=== PATIENT | male | born 1970 | race Caucasian/White ===

== ENCOUNTER → 2017-04-07 13:33 | Outpatient (CLI) | payer MEDICAID ==
[2015-03-29 12:45] VITALS: BMI 24.4
[~2017-04-07 13:33] MED LIST: BRILINTA90 MG PO; BUPRENORPHIN-N1 EACH SL; KLONOPIN1 MG PO; NEURONTIN600 MG PO; PERCOCET 10/3251 TA1 PO
[2017-04-07 14:42] LABS: BASOPHILS 0.2 % (0-2); EOSINOPHILS 1.7 % (0-7); HEMATOCRIT 49.7 % (42.0-54.0); HEMOGLOBIN 17.3 g/dL (13.5-17.5); IMMATURE GRANULOCYTES 0.3 % (0-5); MCH 32.6 pg (26.0-34.0); MCHC 34.8 g/dL (31.0-37.0); MCV 93.8 fL (80.0-100.0); MEAN PLATELET VOLUME 9.4 fL (7.4-10.4); MONOCYTES 7.7 % (2-11); NEUTROPHILS 58.1 % (40-80); PLATELET COUNT 164 10x3/uL (130-400); RDW 13.1 % (11.5-14.5); WBC 9.2 10x3/uL (4.8-10.8)
[2017-04-07 14:58] LABS: ALBUMIN 3.9 g/dL (3.4-5.0); ALKALINE PHOSPHATASE 66 U/L (46-116); ALT (SGPT) 17 U/L (10-68); BILIRUBIN - TOTAL 0.27 mg/dL (0.2-1.3); CALC OSMOLALITY 282 mosm/kg (275-300); CARBON DIOXIDE 34.3 mmol/L (21.0-32.0); CHLORIDE - SERUM 102 mmol/L (98-107); GLUCOSE 72 mg/dL (74-106); POTASSIUM - SERUM 3.5 mmol/L (3.5-5.1); PROTEIN - SERUM 7.3 g/dL (6.4-8.2); SODIUM 142 mmol/L (136-145); T4 THYROXINE 8.1 ug/dL (4.7-13.3); UREA NITROGEN 14 mg/dL (7-18); eGFR NON AFRICAN AMERICAN 85 mL/min (90-120)
[2017-04-07 15:02] LABS: HEMOGLOBIN A1C 5.6 % (4.8-6.0)
[2017-04-08 07:22] LABS: RAPID PLASMA REAGIN Non Reactive (Non Reactive)
[2017-04-08 09:14] LABS: FOLATE (FOLIC ACID) - SERUM 2.5 ng/mL (>3.0)
== END | disposition home or self-care (01) ==
LOC: D.LAB 04-02 12:45 → D.MRI 04-02 13:00
PROVIDERS: Psychiatry & Neurology Neurology
DX: F07.81 Postconcussional syndrome (principal); M54.2 Cervicalgia; G60.9 Hereditary and idiopathic neuropathy, unspecified

== ENCOUNTER 2017-06-01 23:52 | Inpatient (IN) | payer MEDICAID ==
[2017-06-02 00:24] LABS: BASOPHILS 0.1 % (0-2); EOSINOPHILS 0.1 % (0-7); HEMATOCRIT 47.5 % (42.0-54.0); HEMOGLOBIN 16.5 g/dL (13.5-17.5); IMMATURE GRANULOCYTES 0.3 % (0-5); LYMPHOCYTES 13.4 % (15-50); MCH 32.5 pg (26.0-34.0); MCHC 34.7 g/dL (31.0-37.0); MCV 93.5 fL (80.0-100.0); MEAN PLATELET VOLUME 9.8 fL (7.4-10.4); MONOCYTES 12.2 % (2-11); NEUTROPHILS 73.9 % (40-80); PLATELET COUNT 153 10x3/uL (130-400); RBC 5.08 10x6/uL (4.20-6.10); RDW 12.5 % (11.5-14.5); WBC 11.1 10x3/uL (4.8-10.8)
[2017-06-02 00:49] LABS: ALBUMIN 3.6 g/dL (3.4-5.0); ALKALINE PHOSPHATASE 68 U/L (46-116); ALT (SGPT) 27 U/L (10-68); CALC OSMOLALITY 274 mosm/kg (275-300); CALCIUM 9.6 mg/dL (8.5-10.1); CARBON DIOXIDE 32.5 mmol/L (21.0-32.0); CHLORIDE - SERUM 98 mmol/L (98-107); CREATININE - SERUM 0.9 mg/dL (0.6-1.3); POTASSIUM - SERUM 4.2 mmol/L (3.5-5.1); PROTEIN - SERUM 7.7 g/dL (6.4-8.2); SODIUM 137 mmol/L (136-145); UREA NITROGEN 12 mg/dL (7-18); eGFR NON AFRICAN AMERICAN > 90 mL/min (90-120)
[2017-06-02 00:53] LABS: GLUCOSE 125 mg/dL (74-106)
[2017-06-02 01:04] LABS: APPEARANCE CLEAR (CLEAR); BACTERIA NONE SEEN /hpf (NONE SEEN); BILIRUBIN 1+ (NEGATIVE); COLOR DK YELLOW (YELLOW); EPITHELIAL CELLS NSEEN /hpf (0-5); GLUCOSE NEGATIVE (NEGATIVE); KETONE NEGATIVE (NEGATIVE); NITRITE NEGATIVE (NEGATIVE); PROTEIN TRACE mg/dL (NEGATIVE); SPECIFIC GRAVITY 1.015 (1.005-1.020); UROBILINOGEN NORMAL (NORMAL); WHITE CELLS - URINE NSEEN /hpf (0-5)
[2017-06-02 01:10] LABS: UDS - AMPHET NEGATIVE QUAL (NEGATIVE); UDS - BARB NEGATIVE QUAL (NEGATIVE); UDS - BENZO POSITIVE QUAL (NEGATIVE); UDS - COCAINE NEGATIVE QUAL (NEGATIVE); UDS - PCP NEGATIVE QUAL (NEGATIVE); UDS - THC NEGATIVE QUAL (NEGATIVE)
[2017-06-02 01:20] LABS: UDS - OPIATE NEGATIVE QUAL (NEGATIVE)
[2017-06-02 02:12] LABS: THYROID STIMULATING HORMONE 0.47 uIU/mL (0.36-3.74)
[2017-06-02 02:13] LABS: TROPONIN-I < 0.017 ng/mL (0.000-0.060)
[2017-06-02 02:52] VITALS: BP 137/82; BMI 22.4
--- NOTE | 2017-06-02 07:00 | NUR ---
REPORT RECIEVED ASSUMED CARE. PATIENT IN BED WITH IV INTACT. NO COMPLAINTS AT THIS TIME. CALL LIGHT WITHINR EACH.
[2017-06-02 08:15] VITALS: BP 118/71
--- NOTE | 2017-06-02 10:30 | NUR ---
PATIENT PULLED IV IN RIGHT HAND OUT. CATH TIP INTACT. LEFT ARM IV INTACT. NO COMPLAINT OR PROBLEMS BA ON. CALL LIGHT WITHIN REACH.
[2017-06-02 12:09] VITALS: BP 129/75
--- NOTE | 2017-06-02 12:40 | NUR ---
PATIENT REFUSING MEDS AND BS. MAD AND WANTS TO GO HOME. FAMILY AT BEDSIDE. TRIED TO EXPLAIN TO PATIENT THAT HE HAS TO STAY BC IF HE DOESNT GET WELL HE WILL HAVE TO COME BACK. PATIENT VERBALIZED UNDERSTANDING. IV INTACT. CALL LIGHT WITHIN REACH. BA ON.
[2017-06-02 13:33] VITALS: BMI 22.4
--- NOTE | 2017-06-02 16:45 | NUR ---
PATIENT IN BED WITH NO COMPLAINTS. IV INTACT. BA ON. CALL LIGHT WITHIN REACH.
[2017-06-02 16:56] VITALS: BP 110/63
--- NOTE | 2017-06-02 18:45 | NUR ---
PATIENT IN BED WITH EYES CLOSED RESTING QUIETLY. NO COMPLAINTS OR SIGNS OF DISTRESS. CALL LIGHT WITHIN REACH.
[2017-06-02 20:00] VITALS: BP 96/50
--- NOTE | 2017-06-02 20:00 | NUR ---
ASSESSMENT PER FLOWSHEET. IV PATENT LEFT FOREARM OF 1/2NS AT 75CC'S/HR SITE CLEAR. O2 AT 2L/M PER NC NO DISTRESS. CONFUSED AT TIMES. LESLIE BED ALARM MAT ON.SR UP X2 CALL LIGHT WITHIN REACH. SCD'S ON BILATERALLY.
--- NOTE | 2017-06-02 21:15 | NUR ---
MEDS GIVEN PER MAR. HQNE=[id number]. NO COVERAGE NEEDED.
--- NOTE | 2017-06-02 23:00 | NUR ---
UP WITH HELP TO BR
--- NOTE | 2017-06-03 00:25 | NUR ---
RESTING QUIETLY SR UP X2 CALL LIGHT WITHIN REACH.
--- NOTE | 2017-06-03 02:00 | NUR ---
MEDS GIVEN PER MAR.
[2017-06-03 04:00] VITALS: BP 107/60
[2017-06-03 05:29] LABS: BASOPHILS 0 % (0-2); EOSINOPHILS 0 % (0-7); HEMOGLOBIN 14.4 g/dL (13.5-17.5); IMMATURE GRANULOCYTES 0.2 % (0-5); MCH 31.9 pg (26.0-34.0); MCHC 34.3 g/dL (31.0-37.0); MCV 92.9 fL (80.0-100.0); MEAN PLATELET VOLUME 9.8 fL (7.4-10.4); MONOCYTES 3.9 % (2-11); NEUTROPHILS 88.9 % (40-80); PLATELET COUNT 150 10x3/uL (130-400); RBC 4.52 10x6/uL (4.20-6.10); RDW 12.6 % (11.5-14.5); WBC 10.4 10x3/uL (4.8-10.8)
[2017-06-03 05:38] LABS: ALBUMIN 3.1 g/dL (3.4-5.0); ALKALINE PHOSPHATASE 55 U/L (46-116); ALT (SGPT) 26 U/L (10-68); BILIRUBIN - TOTAL 0.27 mg/dL (0.2-1.3); CALC OSMOLALITY 282 mosm/kg (275-300); CARBON DIOXIDE 30.5 mmol/L (21.0-32.0); CHLORIDE - SERUM 102 mmol/L (98-107); CREATININE - SERUM 0.8 mg/dL (0.6-1.3); GLUCOSE 168 mg/dL (74-106); POTASSIUM - SERUM 3.6 mmol/L (3.5-5.1); PROTEIN - SERUM 6.7 g/dL (6.4-8.2); SODIUM 139 mmol/L (136-145); UREA NITROGEN 14 mg/dL (7-18); eGFR NON AFRICAN AMERICAN > 90 mL/min (90-120)
--- NOTE | 2017-06-03 07:00 | NUR ---
REPORT RECIEVED ASSUMED CARE. PATIENT IN BED WITH IV INTACT. NO COMPLAINTS AT THIS TIME. CALL LIGHT WITHIN REACH.
--- NOTE | 2017-06-03 07:25 | NUR ---
PT NOT AVAILABLE FOR 0600 TX
[2017-06-03 08:09] VITALS: BP 131/85
--- NOTE | 2017-06-03 10:00 | NUR ---
PATIENT UP TO SHOWER AT THIS TIME WITH ASSIST. NO PROBLEMS NOTED. CALL LIGHT WITHIN REACH.
[2017-06-03 12:43] VITALS: BP 115/74
--- NOTE | 2017-06-03 13:00 | NUR ---
PATIENT SITTING UP IN BED EATING. IV INTACT. NO COMPLAINTS. CALL LIGHT WITHIN REACH.
[2017-06-03] MEDS ORDERED: FLORANEX / LACT1 TAB PO (13:59)
[2017-06-03] MEDS ORDERED: PREDNISONE10 MG PO (14:01)
[2017-06-03 16:20] VITALS: BP 141/81
--- NOTE | 2017-06-03 18:00 | NUR ---
PATIENT RECIEVED DISCHARGE INSTRUCTIONS AT THIS TIME. VERBALIZED UNDERSTANDING. FAMILY AT BEDSIDE. IV REMOVED WITH CATH TIP INTACT. CALL LIGHT WITHIN REACH.
--- NOTE | 2017-06-03 18:16 | NUR ---
PATIENT AMBULATED DOWN WITH FAMILY AND NURSE AND PERSONAL BELONGINGS TO PRIVATE VEHICLE AT THIS TIME.
[2017-06-07 04:14] LABS: OVA + PARASITE EXAM Final report (())
== END 2017-06-03 18:21 | disposition home or self-care (01) | DRG 190 ==
LOC: D.ER 23:52 → D.MS 06-02 02:07
PROVIDERS: Emergency Medicine; Nurse Practitioner Acute Care; ADMIT Family Medicine
DX: J44.1 Chronic obstructive pulmonary disease with (acute) exacerbation (principal); G93.41 Metabolic encephalopathy; F17.203 Nicotine dependence unspecified, with withdrawal; E11.65 Type 2 diabetes mellitus with hyperglycemia; E11.40 Type 2 diabetes mellitus with diabetic neuropathy, unspecified; R19.7 Diarrhea, unspecified; F41.9 Anxiety disorder, unspecified; F43.10 Post-traumatic stress disorder, unspecified

== ENCOUNTER 2018-01-10 02:52 | Emergency (ER) | payer MEDICARE, MEDICAID ==
[~2018-01-10 02:52] MED LIST changes: +FLORANEX / LACT1 TAB PO; +PREDNISONE10 MG PO
[2018-01-10 03:27] LABS: BASOPHILS 0.2 % (0-2); EOSINOPHILS 1.4 % (0-7); HEMATOCRIT 52.1 % (42.0-54.0); HEMOGLOBIN 18.7 g/dL (13.5-17.5); IMMATURE GRANULOCYTES 0.2 % (0-5); LYMPHOCYTES 31.1 % (15-50); MCH 34.4 pg (26.0-34.0); MCHC 35.9 g/dL (31.0-37.0); MCV 95.9 fL (80.0-100.0); MEAN PLATELET VOLUME 9.6 fL (7.4-10.4); MONOCYTES 7.8 % (2-11); NEUTROPHILS 59.3 % (40-80); PLATELET COUNT 180 10x3/uL (130-400); RBC 5.43 10x6/uL (4.20-6.10); RDW 13.9 % (11.5-14.5); WBC 10.1 10x3/uL (4.8-10.8)
[2018-01-10 03:36] LABS: ALBUMIN 3.3 g/dL (3.4-5.0); ALKALINE PHOSPHATASE 141 U/L (46-116); ALT (SGPT) 101 U/L (10-68); BILIRUBIN - TOTAL 0.47 mg/dL (0.2-1.3); CALC OSMOLALITY 287 mosm/kg (275-300); CALCIUM 8.8 mg/dL (8.5-10.1); CARBON DIOXIDE 34.5 mmol/L (21.0-32.0); CHLORIDE - SERUM 105 mmol/L (98-107); CREATININE - SERUM 0.8 mg/dL (0.6-1.3); GLUCOSE 121 mg/dL (74-106); POTASSIUM - SERUM 3.8 mmol/L (3.5-5.1); PROTEIN - SERUM 6.9 g/dL (6.4-8.2); SODIUM 145 mmol/L (136-145); UREA NITROGEN 6 mg/dL (7-18); eGFR NON AFRICAN AMERICAN > 90 mL/min (90-120)
[2018-01-10 03:46] LABS: CKMB 5.2 U/L (0.0-3.6); CREATINE KINASE 81 UL (21-232); TROPONIN-I < 0.017 ng/mL (0.000-0.060)
== END 2018-01-10 05:04 | disposition home or self-care (01) ==
LOC: D.ER 02:52
PROVIDERS: Family Medicine
DX: R07.9 Chest pain, unspecified (principal); J44.9 Chronic obstructive pulmonary disease, unspecified; I10 Essential (primary) hypertension; F17.200 Nicotine dependence, unspecified, uncomplicated

== ENCOUNTER → 2018-12-15 11:29 | Outpatient (CLI) | payer OTHER, MEDICAID ==
[~2018-12-15 11:29] MED LIST changes: +BAYER CHEWABLE81 MG PO; +TRAZODONE HCL150 MG PO; +VALIUM10 MG PO; +ZANAFLEX4 MG PO
--- NOTE | 2018-12-25 16:41 | ST ---
PATIENT:BRIGETTE SERNA MEDICAL RECORD: [id number] SEX: M LOCATION:[facility] ORDER #: ADMISSION DATE: 12/15/18 AGE OF PATIENT: 48 REFERRING PHYSICIAN: INTERPRETING PHYSICIAN: MICHAEL JENKINS MD DATE OF SERVICE: 12/15/2018 Nuclear Stress Test INDICATIONS: Angina and coronary artery disease, hypertension, and hyperlipidemia. He was exercised on standard Lexiscan protocol with 32 mCi of sestamibi injected at peak stress, 11 mCi was used previously for rest images. FINDINGS: Gated SPECT reveals preserved ejection fraction at 58% with good wall motioning and thickening and brightening throughout all segments. SPECT IMAGING: Cardiolite was used as myocardial perfusion agent. There are reversible changes inferiorly apically and laterally, this includes basal, mid, apical, and inferior segments, the apex itself as well as the entire lateral wall. The degree of reversibility is moderate. The amount of myocardium involved is large. OVERALL IMPRESSION: This is markedly abnormal nuclear stress test, large area of reversible ischemia anteriorly, apically, and laterally suggestive of multivessel coronary artery disease. We would proceed with coronary angiography as a follow-up study. 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
== END | disposition home or self-care (01) ==
LOC: D.HCCARDIO 11:29
PROVIDERS: ATTEND Internal Medicine Cardiovascular Disease
DX: I25.119 Atherosclerotic heart disease of native coronary artery with unspecified angina pectoris (principal)

== ENCOUNTER 2019-01-05 11:13 | Outpatient (CLI) | payer OTHER, MEDICAID ==
[~2019-01-05] VITALS: Ht 185.4 cm; Wt 79.5 kg
--- NOTE | ~2019-01-05 | HEMODYNAMI ---
PATIENT:BRIGETTE SERNA MEDICAL RECORD: [id number] : 68 LOCATION:[facility] ADMISSION DATE: 01/05/19 Generatedon:01/05/201914:33 Patient name: BRIGETTE SERNA Patient #: [id number] SSN: : Date of study: 01/05/2019 Page: Of Hemodynamic Procedure Report Patient Data Patient Demographics Procedure consent was obtained First Name: BRIGETTE Gender: Male Last Name: DAPHNE : 1970 Middle Initial: RICARDO Age: 48 year(s) Patient #: [id number] Race: Additional ID: [id number] Contact details [address]: [address] [place] [address] State: [place] City: [place] Zip code: [address] Past Medical History Allergies: No known allergies Admission Admission Data Admission Date: 01/05/2019 Admission Time: 11:13 Procedure Procedure Types Cath Procedure Diagnostic Procedure LHC LH w/Coronaries PCI Procedure Coronary Stent Coronary Stent Initial Procedure Description Procedure Date Procedure Date: 01/05/2019 Procedure Start Time: 13:55 Procedure End Time: 14:32 Procedure Staff Name Function Adrián Reich MD Performing Physician Kwadwo Hartman RT Monitor Loida Corona RT Scrub David Fischer RN Nurse Procedure Data Cath Procedure Fluoroscopy Diagnostic fluoroscopy Total fluoroscopy Time: 9.3 time: 9.3 min min Diagnostic fluoroscopy Total fluoroscopy dose: dose: 1384 mGy 1384 mGy Contrast Material Contrast Material Type Amount (ml) Isovue 300 91 Entry Location Entry Primary Successful Side Size Upsize Upsize Entry Closure Wilson ccessful Closure Location (Fr) 1 (Fr) 2 (Fr) Remarks Device Remarks Radial Right 6 Fr Mechanical artery Short Compression Diagnostic catheters Device Type Used For End Catheter Placement DIAGNOSTIC Darion 110cm LV Angiography 5Fr catheter ([id number]) Procedure Complications No complications Procedure Medications Medication Administration Route Dosage Oxygen etCO2 Nasal cannula 2 l/min Lidocaine 2% added to field 20 Heparin Flush Bag added to field 2 bags (1000units/500ml NS) 0.9% NaCl I.V. 100 ml/hr Versed I.V. 2 mg Fentanyl I.V. 100 mcg Versed I.V. 2 mg Fentanyl I.V. 100 mcg Radial Cocktail I.A. 1 syringe (Verapamil 2mg/Nitro 400mcg/Heparin 1500units) Versed I.V. 2 mg Fentanyl I.V. 100 mcg Heparin Bolus I.V. 8000 units Versed I.V. 2 mg Fentanyl I.V. 100 mcg Brilinta P.O. 180 mg Hemodynamics Rest Heart Rate: 72 (bpm) Pressure Samples Time Site Value (mmHg) Purpose Heart Use Rate(bpm) 14:02 LV 144/-7,9 EDP 50 14:02 LV 126/-18,1 Snapshot 53 Gradients Valve Time Site Site Mean SEP/DFP Peak To Heart Use 1 2 (mmHg) (sec/min) Peak Rate (mmHg) (bpm) Aortic 14:03 LV AO 70 Snapshots Pre Cath Intra NCS Post Cath Vital Signs Time Heart Resp SPO2 etCO2 NIBP (mmHg) Rhythm Pain Sedation Rate (ipm) (%) (mmHg) Status Level (bpm) 13:40:07 75 14 97 0 137/91(117) NSR 0 (11) 10(A) , No pain 13:44:11 66 13 96 44.4 150/94(121) NSR 0 (11) 10(A) , No pain 13:48:23 60 19 99 42.2 152/83(129) NSR 0 (11) 10(A) , No pain 13:52:34 58 14 97 38.5 139/83(123) NSR 0 (11) 10(A) , No pain 13:56:43 59 16 96 43.7 142/81(89) NSR 0 (11) 10(A) , No pain 14:00:54 60 14 95 42.2 130/76(111) NSR 0 (11) 10(A) , No pain 14:05:04 79 15 94 45.9 112/68(86) NSR 0 (11) 10(A) , No pain 14:09:04 71 11 94 43 118/77(93) NSR 0 (11) 10(A) , No pain 14:13:05 66 13 97 45.1 126/77(93) NSR 0 (11) 10(A) , No pain 14:17:13 70 10 96 45.2 116/69(89) NSR 0 (11) 10(A) , No pain 14:21:17 65 14 96 44.4 121/71(87) NSR 0 (11) 10(A) , No pain 14:25:21 67 14 96 43 133/76(94) NSR 0 (11) 10(A) , No pain 14:29:29 69 16 96 45.1 134/77(105) NSR 0 (11) 10(A) , No pain Medications Time Medication Route Dose Verified Delivered Reason Not es Effectiveness by by 13:46:53 Oxygen etCO2 2 l/min Adrián Buffie used for Nasal Boom Fischer RN procedure cannula 13:47:04 Lidocaine 2% added 20ml Adrián Adrián for local to vial Boom Reich MD anesthetic field 13:47:10 Heparin Flush added 2 bags Adrián Adrián used for Bag to Boom Reich MD procedure (1000units/500ml field NS) 13:47:19 0.9% NaCl I.V. 100 Adrián Buffie Per physician ml/hr Boom Fischer RN 13:51:28 Versed I.V. 2 mg Adrián Buffie for sedation Boom Fischer RN 13:51:34 Fentanyl I.V. 100 mcg Adrián Buffie for sedation Boom Fischer RN 13:58:47 Versed I.V. 2 mg Adrián Buffie for sedation Boom Fischer RN 13:58:51 Fentanyl I.V. 100 mcg Adrián Buffie for sedation Boom Fischer RN 14:01:57 Radial Cocktail I.A. 1 Adrián Adrián for (Verapamil syringe Boom Reich MD vasodilation 2mg/Nitro 400mcg/Heparin 1500units) 14:05:02 Fentanyl I.V. 100 mcg Adrián Adrián for sedation Boom Reich MD 14:05:58 Versed I.V. 2 mg Adrián Adriná for sedation Boom Reich MD 14:11:48 Heparin Bolus I.V. 8000 Adrián Buffie for debra ified units Boom Fischer RN anticoagulation with dr reich 14:15:27 Versed I.V. 2 mg Adrián Buffie for sedation Boom Fischer RN 14:26:05 Fentanyl I.V. 100 mcg Adrián Buffie for sedation Boom Fischer RN 14:30:39 Brilinta P.O. 180 mg Adrián Vicenteie for Boom Fischer RN antiplatelet therapy Procedure Log Time Note 13:24:21 Diagnostic Cath Status : Elective 13:25:09 Kwadwo Hartman RT(R) sent for patient. Start room use. 13:25:10 Time tracking: Regular hours (M-F 7:00 - 5:00) 13:25:19 Plan of Care:Hemodynamics will remain stable., Cardiac rhythm will remain stable., Comfort level will be maintained., Respiratory function will remain adequate., Patient/ family verbilizes understanding of procedure., Procedure tolerated without complication., Recovers from procedure without complications.. 13:32:23 Patient received from Pre/Post Procedure Room to CCL 2 Alert and oriented. Tansferred to table in Supine position. 13:32:24 Warm blankets applied, and higinio hugger turned on for patient comfort. 13:32:25 Correct patient and procedure confirmed by team. 13:32:26 ECG and BP/O2 sat monitors applied to patient. 13:32:27 Signed procedure consent form obtained from patient. 13:39:09 Vital chart was started 13:39:10 Baseline sample Acquired. 13:39:14 Rhythm: sinus rhythm 13:39:15 Full Disclosure recording started 13:39:19 H&P Date Dictated: 01/05/2019 Within 30 days and on chart., H&P Addendum completed by physician on day of procedure. (MUST COMPLETE FOR ALL OUTPATIENTS). 13:39:20 Pre-procedure instructions explained to patient. 13:39:21 Pre-op teaching completed and patient verbalized understanding. 13:39:22 Family in waiting room. 13:39:23 Patient NPO since Midnight. 13:39:24 Is the patient allergic to Iodine/contrast media? No. 13:39:26 Was the patient premedicated? No 13:39:28 Is patient on blood thinner?Yes 13:39:30 ACC The patient was administered the following blood thiners within the last 24 hours: ACCAspirin 13:39:32 Patient diabetic? Yes. 13:39:33 If diabetic: On Metformin? No 13:39:35 Previous problem with sedation/anesthesia? No ? 13:39:37 Snore? Yes 13:39:38 Sleep apnea? No 13:39:39 Deviated septum? No 13:39:39 Opens mouth fully? Yes 13:39:40 Sticks out tongue? Yes 13:39:42 Airway obstruction? No ? 13:39:53 Dentures? No ? 13:39:56 Pre procedure: right dorsailis pedis pulse 2+ Normal; easily identifiable; not easily obliterated 13:39:57 Pre procedure: left dorsailis pedis pulse 2+ Normal; easily identifiable; not easily obliterated 13:39:59 Patient pain scale 0/10 ?. 13:40:05 IV patent on arrival in left antecubital with 0.9% NaCl at [facility]. 13:40:07 Lab results completed and on chart. 13:40:11 Right Radial & Right Groin area was prepped with chlora-prep and draped in sterile fashion 13:40:12 Alarms reviewed by R. N. 13:40:12 Sharps counted by scrub and verified by R.N. 13:46:53 Oxygen 2 l/min etCO2 Nasal cannula was administered by David Fischer RN; used for procedure; 13:47:04 Lidocaine 2% 20ml vial added to field was administered by Adrián Reich MD; for local anesthetic; 13:47:10 Heparin Flush Bag (1000units/500ml NS) 2 bags added to field was administered by Adrián Reich MD; used for procedure; 13:47:19 0.9% NaCl 100 ml/hr I.V. was administered by David Fischer RN; Per physician; 13:49:59 Physician arrived 13:50:00 --------ALL STOP TIME OUT------ 13:50:00 Final Timeout: patient, procedure, and site verified with staff and physician. All members of the team are in agreement. 13:50:05 Right Radial & Left Groin site verified by team. 13:50:10 Maximum allowable Isovue 300 dose 300.ml. Physician notified. (300ml for normal creatinines. For patients with creatinine of 1.7 or higher multiply weight(kg) x 5 divided by creatinine.) 13:50:16 Fire Safety Assessment: A--An alcohol-based skin anteseptic being used preoperatively., C--Open oxygen or nitrous oxide is being used., D--An ESU, laser, or fiber-optic light is being used. 13:50:19 Physical assessment completed. ASA score P 2 - A patient with mild systemic disease as per Adrián Reich MD. 13:50:23 Sedation plan: IV Moderate Sedation Medication:Versed, Fentanyl 13:50:28 Use device set Radial Dx or PCI 13:50:29 ACIST Syringe (73776) opened to sterile field. 13:50:30 Medline Cath Pack ([id number]) opened to sterile field. 13:50:30 Bag Decanter (2002S) opened to sterile field. 13:50:30 DIAGNOSTIC WIRE .035 260cm J wire (401453) opened to sterile field. 13:50:31 ACIST Hand Control (56478) opened to sterile field. 13:50:31 ACIST Manifold (89989) opened to sterile field. 13:50:32 Tegaderm 4 x 4 (1626W) opened to sterile field. 13:50:32 MBrace Wrist Support ([id number]) opened to sterile field. 13:50:35 TR BAND Standard ([id number]) opened to sterile field. 13:50:36 NEEDLE Cook 21G 4cm Radial (N91359) opened to sterile field. 13:50:38 SHEATH 6FR Slender (801060) opened to sterile field. 13:51:28 Versed 2 mg I.V. was administered by David Fischer RN; for sedation; 13:51:34 Fentanyl 100 mcg I.V. was administered by David Fischer RN; for sedation; 13:55:00 Procedure started. 13:55:59 Local anesthetic to right radial artery with Lidocaine 2% by Adrián Reich MD.INITIAL ACCESS ONLY 13:56:10 A 6 Fr Short sheath was inserted into the Right Radial artery 13:56:24 Zero performed for pressure channel P1 13:58:47 Versed 2 mg I.V. was administered by David Fischer RN; for sedation; 13:58:51 Fentanyl 100 mcg I.V. was administered by David Fischer RN; for sedation; 14:01:24 A DIAGNOSTIC Darion 110cm 5Fr catheter (081020) was advanced over the wire and used for LV Angiography. 14:01:57 Radial Cocktail (Verapamil 2mg/Nitro 400mcg/Heparin 1500units) 1 syringe I.A. was administered by Adrián Reich MD; for vasodilation; 14:02:58 LV angiography performed. 14:03:00 LV gram done using WOOD 14:03:02 LV hemodynamics recorded. 14:03:06 EF : 50 % 14:03:16 Injector settings: Ml/sec: 5, Volume: 15, 14:03:40 LCA angiography performed. 14:05:02 Fentanyl 100 mcg I.V. was administered by Adrián Reich MD; for sedation; 14:05:05 RCA angiography performed. 14:05:58 Versed 2 mg I.V. was administered by Adrián Reich MD; for sedation; 14:06:41 Catheter exchanged over wire. 14:08:49 GUIDE 6FR XBLAD 3.5 catheter ([id number]) opened to sterile field. 14:08:50 BMW 300cm [place] 2 J wire (2172588F) opened to sterile field. 14:08:50 TUBING High Pressure Extension Tubing (Boom) (MU5873E) opened to sterile field. 14:08:52 INFLATOR Merit BasixCompak (TV9004) opened to sterile field. 14:09:06 6 Fr XBLAD 3.5 guide catheter was inserted over the wire 14:09:16 Procedure type changed to Cath procedure, Diagnostic procedure, LHC, LHC w/Coronaries, PCI procedure, Coronary Stent, Coronary Stent Initial 14:11:48 Heparin Bolus 8000 units I.V. was administered by David Fischer RN; for anticoagulation; verified with dr reich 14:14:02 BMW wire advanced. 14:15:27 Versed 2 mg I.V. was administered by David Fischer RN; for sedation; 14:17:58 Inflate balloon Inflation number: 1 A EMERGE OTW 3.0 x 20 balloon ([id number]) was prepped and advanced across the Mid CX, then inflated to 12 KIKI for 0:30 (min:sec). 14:18:23 Inflation number: 2 The EMERGE OTW 3.0 x 20 balloon ([id number]) was reinflated across the Mid CX, to 10 KIKI for 0:11 (min:sec). 14:18:45 Inflation number: 3 The EMERGE OTW 3.0 x 20 balloon ([id number]) was reinflated across the Mid CX, to 10 KIKI for 0:10 (min:sec). 14:20:41 Inflation number: 4 The EMERGE OTW 3.0 x 20 balloon ([id number]) was reinflated across the Mid CX, to 12 KIKI for 0:10 (min:sec). 14:23:20 Balloon removed over the wire. 14:26:05 Fentanyl 100 mcg I.V. was administered by David Fischer RN; for sedation; 14:26:52 Place stent Inflation Number: 5 A COBRA RX 3.0 X 12 Stent was prepped and advanced across the Mid CX. The stent was deployed at 14 KIKI for 0:16 (min:sec). 14:27:45 Stent catheter was removed intact over wire. 14:27:46 Wire removed. 14:27:50 Guide catheter removed. 14:29:28 Sheath removed intact; hemostasis achieved with Mechanical Compression to the Right Radial artery. 14:29:29 Procedure ended.(Physican Out) 14:30:03 Fluoroscopy time 09.30 minutes. 14:30:10 Flurop Dose total: 1384 14:30:10 Fluoroscopy dose: 1384 mGy 14:30:39 Brilinta 180 mg P.O. was administered by David Fischer RN; for antiplatelet therapy; 14:30:45 Contrast amount:Isovue 300 91ml. 14:31:12 Sharps counted by scrub and verified by R.N. 14:31:33 TR band inflated with 10cc of air. 14:31:49 Post right radial artery:stable 14:31:51 Post Procedure Pulses reassessed and unchanged 14:31:55 Post procedure rhythm: unchanged. 14:31:57 Post procedure instruction explained to patient.Patient verbalizes understanding. 14:31:57 Procedure and supply charges have been captured, reviewed, submitted and are correct. 14:32:11 Procedure Complication : No complications 14:32:31 Vital chart was stopped 14:32:32 See physician's report for complete and final results. 14:32:41 Report given to Pre/Post Procedure Room. 14:32:44 Patient transfered to Pre/Post Procedure Room with Stretcher. 14:32:46 Procedure ended. 14:32:46 Full Disclosure recording stopped 14:32:55 ACC-PCI Only Patient was given prescriptions, or instructed by Adrián Reich MD to start/continue the following medications upon discharge: Brilinta 14:32:57 End room use (Document Last) Intervention Summary Intervention Notes Time ActionType Lesion and Equipment Action# Pressure Duration Attributes Used 14:17:58 Inflate Mid CX EMERGE OTW 1 12 00:30 balloon 3.0 x 20 balloon ([id number]) 14:18:23 Reinflate Mid CX EMERGE OTW 2 10 00:11 balloon 3.0 x 20 balloon ([id number]) 14:18:45 Reinflate Mid CX EMERGE OTW 3 10 00:10 balloon 3.0 x 20 balloon ([id number]) 14:20:41 Reinflate Mid CX EMERGE OTW 4 12 00:10 balloon 3.0 x 20 balloon ([id number]) 14:26:52 Place stent Mid CX COBRA RX 3.0 5 14 00:16 X 12 Stent Device Usage Item Name Manufacture Quantity Catalog Number Hospital Part Current Minimal Lot# / Charge Number Stock Stock Serial# Code ACIST Syringe Acist 1 30452 776560 886387 509790 20 (39717) Medical Systems Inc Medline Cath Medline 1 [id number] 473913 81657 892463 5 Pack ([id number]) Bag Decanter Microtek 1 2001S 565898 74724 314433 5 (2001S) Medical Inc. DIAGNOSTIC St [place] 1 344302 379234 105695 940653 30 WIRE .035 260cm J wire (408238) ACIST Hand Acist 1 35230 887899 326936 224844 5 Control Medical (70734) Systems Inc ACIST Manifold Acist 1 56727 709728 465415 929589 5 (20619) Medical Systems Inc Tegaderm 4 x 4 3M 1 1626W 017513 099302 841556 5 (1626W) MBrace Wrist Advanced 1 140-0250-00 584584 36074 507048 5 Support Vascular (283688850) Dynamics TR BAND Terumo 1 [id number] 020774 666047 664429 40 Standard ([id number]) NEEDLE Bellhops Medical 1 U33432 071514 507622 048911 5 21G 4cm Radial (A43440) SHEATH 6FR Terumo 1 [id number] 226120 896727 669038 5 Slender (80-1060) DIAGNOSTIC Terumo 1 405023 972459 885880 141261 5 Darion 110cm 5Fr catheter (818048) GUIDE 6FR Cardinal 1 [id number] 304276 148717 013247 10 XBLAD 3.5 Health catheter (88631136) BMW 300cm [place] 1 [id number] 671757 892779 102174 5 [place] 2 J Vascular wire (8820147B) TUBING High Merit 1 [id number] 237288 62561 133096 10 Pressure Medical Extension Tubing (Reich) (GI1655E) INFLATOR Merit Merit 1 CI6318 018116 722531 881192 15 [facility] (SY0509) EMERGE OTW 3.0 Lookout 1 [id number] 406662 693257 022295 5 08481456 x 20 balloon Scientific ([id number]) COBRA RX 3.0 X Celonova 1 170.03-13657650 217308 62454789 4403920 0 [id number] 12 stent Qnips GmbH (998-17-55499) Signature Audit [place] Stage Time Signature Unsigned Intra-Procedure 01/05/2019 Kwadwo Hartman RT(R) 2:33:40 PM Signatures Monitor : Kwadwo Hartman RT Signature : Date : Time : [place] [address] [place] [address]
[~2019-01-05 11:13] MED LIST changes: -BAYER CHEWABLE81 MG PO; -TRAZODONE HCL150 MG PO; -VALIUM10 MG PO; -ZANAFLEX4 MG PO
[2019-01-05] MEDS ORDERED: TRAZODONE HCL150 MG PO (12:14)
[2019-01-05] MEDS ORDERED: BUPRENORPHIN-N1 EACH SL (12:17)
[2019-01-05] MEDS ORDERED: VALIUM10 MG PO (12:18)
[2019-01-05] MEDS ORDERED: BAYER CHEWABLE81 MG PO (12:18)
[2019-01-05] MEDS ORDERED: NEURONTIN600 MG PO (12:18)
[2019-01-05] MEDS ORDERED: ZANAFLEX4 MG PO (12:18)
[2019-01-05 12:41] VITALS: BP 138/78; Ht 185.4 cm; Wt 79.5 kg
[2019-01-05 12:41] LABS: BASOPHILS 0.2 % (0-2); EOSINOPHILS 1.3 % (0-7); HEMATOCRIT 49.2 % (42.0-54.0); HEMOGLOBIN 17.8 g/dL (13.5-17.5); IMMATURE GRANULOCYTES 0.2 % (0-5); LYMPHOCYTES 21.6 % (15-50); MCH 32.1 pg (26.0-34.0); MCHC 36.2 g/dL (31.0-37.0); MCV 88.8 fL (80.0-100.0); MEAN PLATELET VOLUME 9.5 fL (7.4-10.4); MONOCYTES 7.1 % (2-11); NEUTROPHILS 69.6 % (40-80); PLATELET COUNT 166 10x3/uL (130-400); RBC 5.54 10x6/uL (4.20-6.10); RDW 13.5 % (11.5-14.5); WBC 8.5 10x3/uL (4.8-10.8)
[2019-01-05 12:49] LABS: CALC OSMOLALITY 280 mosm/kg (275-300); CALCIUM 8.6 mg/dL (8.5-10.1); CARBON DIOXIDE 28.9 mmol/L (21.0-32.0); CHLORIDE - SERUM 102 mmol/L (98-107); GLUCOSE 121 mg/dL (74-106); POTASSIUM - SERUM 3.8 mmol/L (3.5-5.1); SODIUM 139 mmol/L (136-145); UREA NITROGEN 17 mg/dL (7-18); eGFR NON AFRICAN AMERICAN 84 mL/min (90-120)
--- NOTE | 2019-01-05 14:44 | NUR ---
PT ARRIVED BY BED. PLACED ON MONITORS. ASSESSMENT COMPLETED. CALL LIGHT WITHIN REACH
[2019-01-05] MEDS ORDERED: BRILINTA90 MG PO (14:57)
--- NOTE | 2019-01-05 15:00 | NUR ---
PT RESTING COMFORTABLY. VSS. RIGHT RADIAL TR BAND IN PLACE. NO BLEEDING/HEMATOMA NOTED. CALL LIGHT WITHIN REACH.
--- NOTE | 2019-01-05 15:31 | NUR ---
PT RESTING COMFORTABLY. CALL LIGHT WITHIN REACH. VSS. RIGHT RADIAL TR BAND IN PLACE. NO BLEEDING/HEMATOMA NOTED.
--- NOTE | 2019-01-05 15:35 | NUR ---
DR. CORONA AT BEDSIDE. UPDATED PT AND PT'S FAMILY ON STATUS.
--- NOTE | 2019-01-05 16:00 | NUR ---
PT'S HEAD OF BED INC. HE VOIDED IN URINAL 500CC WITHOUT DIFFICULTY. SET UP WITH SANDWICH TRAY AND DRINK. VSS. RIGHT RADIAL TR BAND IN PLACE. NO BLEEDING/HEMATOMA NOTED.
--- NOTE | 2019-01-05 16:45 | NUR ---
RIGHT RADIAL TR BAND IN PLACE. NO BLEEDING/HEMATOMA NOTED. VSS. PT RESTING COMFORTABLY. CALL LIGHT WITHIN REACH. TOLERATED HIS SANDWICH. DENIES NAUSEA.
--- NOTE | 2019-01-05 17:17 | NUR ---
2cc OF AIR REMOVED FROM TB BAND. PT TOLERATED WELL. NO BLEEDING/HEMATOMA NOTED. VSS.
--- NOTE | 2019-01-05 17:35 | NUR ---
2cc OF AIR REMOVED FROM TR BAND. PT TOLERATED WELL. NO BLEEDING/HEMATOMA NOTED. VSS.
--- NOTE | 2019-01-05 18:04 | NUR ---
3cc OF AIR REMOVED FROM TR BAND. NO BLEEDING/HEMATOMA NOTED. VSS. LEFT ARM PIV D/C'D WITH CATH TIP INTACT. PT TOLERATED WELL. INSTRUCTED PT TO GET UP AND DRESSED AT THIS TIME.
--- NOTE | 2019-01-05 18:10 | NUR ---
TR BAND REMOVED. NO BLEEDING/HEMATOMA NOTED. DRESSING APPLIED.
--- NOTE | 2019-01-05 18:20 | NUR ---
DISCUSSED DISCHARGE INSTRUCTIONS WITH PT. HE VOICED UNDERSTANDING. RIGHT RADIAL DRESSING C/D/I. NO S/S OF HEMATOMA NOTED.
--- NOTE | 2019-01-05 18:35 | NUR ---
PT TAKEN OUT TO WAITING ROOM TO WAIT ON HIS RIDE. HE STATED SHE WOULD BE HERE ANY MINUTE, BUT DIDN'T WANT TO WAIT IN HIS ROOM. HE DID NOT WANT ME WAITING WITH HIM OUT IN THE WAITING ROOM EITHER. RIGHT RADIAL DRESSING C/D/I. NO S/S OF HEMATOMA NOTED. NO S/S OF DISTRESS NOTED. ALL BELONGINGS AND PAPERWORK IN HAND.
== END 2019-01-05 18:35 | disposition home or self-care (01) ==
LOC: D.CATH 11:13
PROVIDERS: ATTEND Internal Medicine Cardiovascular Disease
DX: I25.119 Atherosclerotic heart disease of native coronary artery with unspecified angina pectoris (principal); T82.855A Stenosis of coronary artery stent, initial encounter; Z01.812 Encounter for preprocedural laboratory examination

== ENCOUNTER → 2020-02-07 10:09 | Outpatient (CLI) | payer OTHER, MEDICAID ==
[2019-01-05 12:41] VITALS: BMI 23.1
[~2020-02-07 10:09] MED LIST changes: +BAYER CHEWABLE81 MG PO; +TRAZODONE HCL150 MG PO; +VALIUM10 MG PO; +ZANAFLEX4 MG PO
== END | disposition home or self-care (01) ==
LOC: D.HCCARDIO 10:09
PROVIDERS: ATTEND Internal Medicine Cardiovascular Disease
DX: I25.10 Atherosclerotic heart disease of native coronary artery without angina pectoris (principal)

== ENCOUNTER 2020-05-01 17:24 | Emergency (ER) | payer OTHER, MEDICAID ==
[~2020-05-01] VITALS: Ht 185.4 cm; Wt 81.8 kg
[2020-05-01 17:48] VITALS: Ht 185.4 cm; Wt 81.8 kg
[2020-05-01 18:33] LABS: BASOPHILS 0.2 % (0-2); EOSINOPHILS 2.4 % (0-7); HEMATOCRIT 55.9 % (42.0-54.0); HEMOGLOBIN 18.6 g/dL (13.5-17.5); IMMATURE GRANULOCYTES 0.2 % (0-5); LYMPHOCYTES 25.8 % (15-50); MCH 31.5 pg (26.0-34.0); MCHC 33.3 g/dL (31.0-37.0); MCV 94.6 fL (80.0-100.0); MEAN PLATELET VOLUME 9.4 fL (7.4-10.4); MONOCYTES 8.4 % (2-11); PLATELET COUNT 159 10x3/uL (130-400); RBC 5.91 10x6/uL (4.20-6.10); RDW 14.4 % (11.5-14.5); WBC 8.6 10x3/uL (4.8-10.8)
[2020-05-01 18:45] LABS: APTT 30.5 SECONDS (22.8-39.4); INR 1.02 (0.85-1.17); PROTIME 13.4 SECONDS (11.6-15.0)
[2020-05-01 18:46] LABS: CALC OSMOLALITY 275 mosm/kg (275-300); CALCIUM 8.7 mg/dL (8.5-10.1); CARBON DIOXIDE 33.2 mmol/L (21.0-32.0); CHLORIDE - SERUM 100 mmol/L (98-107); CREATININE - SERUM 1.1 mg/dL (0.6-1.3); GLUCOSE 130 mg/dL (74-106); POTASSIUM - SERUM 3.7 mmol/L (3.5-5.1); SODIUM 138 mmol/L (136-145); UREA NITROGEN 8 mg/dL (7-18); eGFR NON AFRICAN AMERICAN 75 mL/min (90-120)
[2020-05-01 19:02] LABS: ALBUMIN 3.8 g/dL (3.4-5.0); ALKALINE PHOSPHATASE 82 U/L (30-120); ALT (SGPT) 28 U/L (10-68); BILIRUBIN - TOTAL 0.47 mg/dL (0.2-1.3); CREATINE KINASE 99 UL (21-232); PRO BNP 132 pg/mL (0-125); PROTEIN - SERUM 6.9 g/dL (6.4-8.2); TROPONIN-I < 0.017 ng/mL (0.000-0.060)
[2020-05-01] MEDS ORDERED: FLOXIN 0.3 % OTI5 ML RIGHT EAR (20:39)
[2020-05-01 20:53] VITALS: BP 166/98
== END 2020-05-01 20:54 | disposition home or self-care (01) ==
LOC: D.ER 17:24
DX: J32.9 Chronic sinusitis, unspecified (principal); H66.91 Otitis media, unspecified, right ear; H72.91 Unspecified perforation of tympanic membrane, right ear; Z72.0 Tobacco use; I25.2 Old myocardial infarction; G62.9 Polyneuropathy, unspecified; R06.02 Shortness of breath